=== PATIENT | male | born 1970 | race Caucasian/White ===

== ENCOUNTER 2017-04-30 05:51 | Day surgery (SDC) | payer BC ==
[2017-04-29 14:01] LABS: HEMATOCRIT 34.8 % (40.0-51.0)
[~2017-04-30 05:51] MED LIST: CEFT2 PO; FLOMAX4 PO; KLOR-CON M2020 MEQ PO; PERCOCET 7.5/321 TAB PO
[2017-05-05 01:24] LABS: STONE COMPOSITION TWO DNR (())
== END 2017-04-30 23:59 | disposition home health service (06) ==
LOC: SDC 05:51
PROVIDERS: Urology
DX: N20.1 Calculus of ureter (principal); E64.9 Sequelae of unspecified nutritional deficiency; K21.9 Gastro-esophageal reflux disease without esophagitis; Z53.9 Procedure and treatment not carried out, unspecified reason; Z88.8 Allergy status to other drugs, medicaments and biological substances; Z79.891 Long term (current) use of opiate analgesic; Z79.899 Other long term (current) drug therapy; Z98.890 Other specified postprocedural states
CPT/HCPCS: 74000; 82365; 85014; 85018